=== PATIENT | male | born 1985 | race Caucasian/White ===

== ENCOUNTER 2017-10-04 21:08 | Emergency (ER) | payer SELFPAY ==
[2017-10-04] MEDS: TETRACAINE 0.5% OPHTH SOLUTION 4ML BOTTLE. OD (22:45)
[2017-10-04] MEDS: FLUORESCEIN OPHTH TEST STRIP. OD (22:45)
== END 2017-10-04 23:22 | disposition home or self-care (01) ==
LOC: ER 21:08
DX: S06.0X1A Concussion with loss of consciousness of 30 minutes or less, initial encounter (principal); H53.8 Other visual disturbances; M54.2 Cervicalgia; E10.9 Type 1 diabetes mellitus without complications; W01.198A Fall on same level from slipping, tripping and stumbling with subsequent striking against other object, initial encounter; Y93.F9 Activity, other caregiving; Y92.69 Other specified industrial and construction area as the place of occurrence of the external cause; Y99.8 Other external cause status
CPT/HCPCS: 70450; 70480; 72125; 99284-25